=== PATIENT | female | born 2000 | race Two or more races ===

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

== ENCOUNTER 2022-09-10 22:07 | Inpatient (IN) | payer MEDICAID, OTHER ==
[~2022-09-10] VITALS: Ht 167.6 cm; Wt 123.4 kg
[~2022-09-10 22:07] MED LIST changes: -IBUPROFEN 800 MG TAB PO ONE; +NITR-87 PO; +ONDA-144 PO; +PERCOT PO; -cefTRIAXone SOD 1,000 MG VL IM ONE
[2022-09-10] MEDS ORDERED: SODIUM CHLORIDE 0.9% 1,000 ML IV ONE (22:30)
[2022-09-10 22:44] LABS: Basophils # (auto) 0 10 ^3/uL (0-0.2); Basophils % (auto) 0.3 % (0.0-2.0); Eosinophils # (auto) 0 10 ^3/uL (0-0.8); Eosinophils % (auto) 0.3 % (0.0-7.0); Hemoglobin 12.8 g/dL (12.2-16.2); Monocytes # (auto) 0.6 10 ^3/uL (0-1.3); Neutrophils # (auto) 8.7 10 ^3/uL (1.6-8.6)
[2022-09-10 22:46] LABS: Hematocrit 40.9 % (36.0-46.0); Lymphocytes # (auto) 1.4 10 ^3/uL (0.4-5.4); Mean Corpuscular Hemoglobin 23.5 pg (28.0-32.0); Mean Corpuscular Hgb Conc. 31.3 g/dL (32.0-36.0); Mean Corpuscular Volume 75.2 fL (80.0-100.0); Monocytes % (auto) 5.9 % (0.0-12.0); Neutrophils % (auto) 80.5 % (37.0-80.0); Red Blood Cells 5.43 10^6/uL (4.0-5.20); Red Cell Distribution Width 16.6 % (11.8-14.3); White Blood Cell 10.8 10^3/uL (4.4-10.8)
[2022-09-10 23:03] LABS: Albumin 3.5 g/dL (3.4-5.0); BUN/Creatinine Ratio 17.5; Calcium 9.6 mg/dL (8.5-10.1); Potassium 4.4 mmol/L (3.5-5.1)
[2022-09-10 23:06] LABS: Total Protein 8.8 g/dL (6.4-8.2)
[2022-09-11] MEDS ORDERED: PIPERACILLIN-TAZOB 3.375GM 100 ML IV ONE (01:45)
[2022-09-11] MEDS ORDERED: NITROGLYCERIN 0.4 MG SL TAB SL PRN (03:45)
[2022-09-11] MEDS ORDERED: MORPHINE SULFATE INJ 2 MG/ml SYRG IV PRN ×2 (03:45)
[2022-09-11] MEDS ORDERED: ACETAMINOPHEN 325 MG TAB PO PRN (03:45)
[2022-09-11] MEDS ORDERED: D5W/SOD CHL 0.45% 1,000 ML IV SCH (03:45)
[2022-09-11] MEDS: ONDANSETRON HCL 4 MG/2 ML VIAL IV PRN ×2 (04:46→18:39)
[2022-09-11 05:46] LABS: Basophils # (auto) 0 10 ^3/uL (0-0.2); Basophils % (auto) 0.4 % (0.0-2.0); Eosinophils # (auto) 0.1 10 ^3/uL (0-0.8); Mean Corpuscular Volume 74.9 fL (80.0-100.0); Neutrophils # (auto) 5.8 10 ^3/uL (1.6-8.6)
[2022-09-11 05:48] LABS: Hematocrit 37.2 % (36.0-46.0); Hemoglobin 11.6 g/dL (12.2-16.2); Lymphocytes # (auto) 2.5 10 ^3/uL (0.4-5.4); Lymphocytes % (auto) 27.8 % (10.0-50.0); Mean Corpuscular Hemoglobin 23.3 pg (28.0-32.0); Mean Corpuscular Hgb Conc. 31.1 g/dL (32.0-36.0); Monocytes # (auto) 0.6 10 ^3/uL (0-1.3); Monocytes % (auto) 6.2 % (0.0-12.0); Neutrophils % (auto) 64.6 % (37.0-80.0); Nucleated Red Blood Cells % 0.1 %; Red Blood Cells 4.97 10^6/uL (4.0-5.20)
[2022-09-11 05:54] LABS: Albumin 3.1 g/dL (3.4-5.0); Calcium 8.7 mg/dL (8.5-10.1); Potassium 3.9 mmol/L (3.5-5.1)
[2022-09-11 05:58] LABS: BUN/Creatinine Ratio 21.7; Total Protein 7.5 g/dL (6.4-8.2)
[2022-09-11 06:03] LABS: INR 1.04 (0.9-1.15)
[2022-09-11 08:17] LABS: Urine Bacteria NONE SEEN /hpf (None Seen); Urine Blood 3+ /uL (Negative); Urine Mucus FEW (None Seen); Urine WBC 104 /hpf (0 - 5)
[2022-09-11] MEDS: cefTRIAXone 1GM/50ML D5W 50 ML IV SCH (08:43)
[2022-09-11] MEDS ORDERED: IBUPROFEN 600 MG TAB PO PRN (09:15)
[2022-09-11] MEDS ORDERED: LIDOCAINE 1%-Mpf/Epinephrine 1:200,000 ONE (09:35)
[2022-09-11] MEDS ORDERED: ROPIVACAINE 0.5% (5MG/ML) 20ML AMPULE IJ ONE (09:35)
[2022-09-11] MEDS ORDERED: METOCLOPRAMIDE HCL 5MG/ml INJ 2ml VIAL IV PRN (10:45)
[2022-09-11] MEDS ORDERED: HYDROmorphone HCL 2 MG/ML VL/or syr IV PRN ×3 (10:45→13:30)
[2022-09-11] MEDS ORDERED: MORPHINE SULFATE 4 MG/ML SYR/VIAL IV PRN (10:45)
[2022-09-11] MEDS ORDERED: fentaNYL CITRATE 100 MCG/2 ML VL ONE ×2 (12:19→13:39)
[2022-09-11] MEDS ORDERED: MIDAZOLAM HCL 2MG/2ML 2ml VIAL (1mg/ml) ONE (12:19)
[2022-09-11] MEDS ORDERED: ROCURONIUM 10MG/ML 10ML VIAL IV ONE (12:20)
[2022-09-11] MEDS ORDERED: ceFAZolin 1GM/50ML 100 ML IV ONE (12:37)
[2022-09-11] MEDS ORDERED: SUCCINYLCHOLINE CHLORIDE 20 MG/ML 10ML VIAL IV ONE (12:47)
[2022-09-11] MEDS ORDERED: ONDANSETRON HCL 4 MG/2 ML VIAL IV PRN (13:30)
[2022-09-11] MEDS ORDERED: ONDANSETRON HCL 4 MG/2 ML VIAL ONE ×2 (13:46→14:18)
[2022-09-11] MEDS ORDERED: GLYCOPYRROLATE 0.2 MG/ML 1ML VIAL ONE (14:06)
[2022-09-11] MEDS ORDERED: NEOSTIGMINE 1 MG/ML INJ (10mg/10ML VIAL) ONE (14:06)
[2022-09-11] MEDS: HYDROmorphone HCL 2 MG/ML VL/or syr IV PRN ×3 (14:29→15:13)
[2022-09-11 16:24] VITALS: BP 127/78
[2022-09-11 17:00] VITALS: BP 127/78
[2022-09-11] MEDS: HYDROcodone-ACET 5/325MG TAB PO PRN (18:10)
[2022-09-11] MEDS: D5W/SOD CHL 0.45%/KCL 20MEQ 1,000 ML IV SCH (18:29)
[2022-09-11 22:00] VITALS: BP 104/63
[2022-09-12] MEDS: D5W/SOD CHL 0.45%/KCL 20MEQ 1,000 ML IV SCH ×3 (00:15→20:15)
[2022-09-12] MEDS: HYDROcodone-ACET 5/325MG TAB PO PRN (00:27)
[2022-09-12] MEDS: ONDANSETRON HCL 4 MG/2 ML VIAL IV PRN ×3 (03:02→22:33)
[2022-09-12 05:00] VITALS: BP 105/68
[2022-09-12 06:20] LABS: Basophils # (auto) 0 10 ^3/uL (0-0.2); Basophils % (auto) 0.3 % (0.0-2.0); Eosinophils # (auto) 0.1 10 ^3/uL (0-0.8); Lymphocytes # (auto) 1.8 10 ^3/uL (0.4-5.4); Mean Corpuscular Volume 74.5 fL (80.0-100.0); Nucleated Red Blood Cells % 0.1 %; White Blood Cell 10.3 10^3/uL (4.4-10.8)
[2022-09-12 06:23] LABS: Eosinophils % (auto) 0.6 % (0.0-7.0); Hematocrit 34.4 % (36.0-46.0); Lymphocytes % (auto) 17.8 % (10.0-50.0); Mean Corpuscular Hemoglobin 23.8 pg (28.0-32.0); Mean Corpuscular Hgb Conc. 31.9 g/dL (32.0-36.0); Monocytes # (auto) 0.8 10 ^3/uL (0-1.3); Monocytes % (auto) 7.5 % (0.0-12.0); Neutrophils # (auto) 7.6 10 ^3/uL (1.6-8.6); Neutrophils % (auto) 73.8 % (37.0-80.0); Red Blood Cells 4.61 10^6/uL (4.0-5.20); Red Cell Distribution Width 16.3 % (11.8-14.3)
[2022-09-12 06:31] LABS: Albumin 2.9 g/dL (3.4-5.0); Calcium 8.4 mg/dL (8.5-10.1); Potassium 3.7 mmol/L (3.5-5.1)
[2022-09-12 06:35] LABS: BUN/Creatinine Ratio 12.1; Bilirubin, Total 1.1 mg/dL (0.2-1.0); Total Protein 7.2 g/dL (6.4-8.2)
[2022-09-12 09:00] VITALS: BP 98/53
[2022-09-12] MEDS: cefTRIAXone 1GM/50ML D5W 50 ML IV SCH (10:48)
[2022-09-12 13:00] VITALS: BP 105/62
[2022-09-12] MEDS: IBUPROFEN 600 MG TAB PO PRN ×2 (15:02→22:30)
[2022-09-12 17:00] VITALS: BP 102/74
[2022-09-12 22:00] VITALS: BP_SYST 110; BP_SYST 93; BP_DIAS 53; BP_DIAS 67
[2022-09-13] VITALS (7 sets, daily range): BP systolic 101–113; BP diastolic 53–73
[2022-09-13] MEDS: ONDANSETRON HCL 4 MG/2 ML VIAL IV PRN ×4 (02:18→23:43)
[2022-09-13] MEDS: D5W/SOD CHL 0.45%/KCL 20MEQ 1,000 ML IV SCH ×2 (05:16→16:15)
[2022-09-13] MEDS: IBUPROFEN 600 MG TAB PO PRN ×2 (08:28→17:25)
[2022-09-13] MEDS: cefTRIAXone 1GM/50ML D5W 50 ML IV SCH (08:28)
[2022-09-13] MEDS ORDERED: ONDANSETRON HCL 4 MG/2 ML VIAL IV ONE (09:45)
[2022-09-13] MEDS: POLYETHYLENE GLYCOL 17 GM PWDR PO SCH ×2 (11:19→21:50)
[2022-09-14] MEDS: D5W/SOD CHL 0.45%/KCL 20MEQ 1,000 ML IV SCH ×3 (02:00→14:30)
[2022-09-14] MEDS: IBUPROFEN 600 MG TAB PO PRN ×2 (04:14→19:06)
[2022-09-14] MEDS: ONDANSETRON HCL 4 MG/2 ML VIAL IV PRN ×2 (04:18→23:14)
[2022-09-14 05:00] VITALS: BP 103/81
[2022-09-14 06:08] LABS: Basophils # (auto) 0 10 ^3/uL (0-0.2); Eosinophils # (auto) 0.1 10 ^3/uL (0-0.8); Neutrophils # (auto) 6.5 10 ^3/uL (1.6-8.6)
[2022-09-14 06:11] LABS: Basophils % (auto) 0.5 % (0.0-2.0); Eosinophils % (auto) 1.3 % (0.0-7.0); Hematocrit 34.3 % (36.0-46.0); Hemoglobin 11.1 g/dL (12.2-16.2); Lymphocytes % (auto) 21.5 % (10.0-50.0); Mean Corpuscular Hemoglobin 24.2 pg (28.0-32.0); Mean Corpuscular Hgb Conc. 32.3 g/dL (32.0-36.0); Mean Corpuscular Volume 74.9 fL (80.0-100.0); Monocytes # (auto) 0.6 10 ^3/uL (0-1.3); Monocytes % (auto) 6.3 % (0.0-12.0); Neutrophils % (auto) 70.4 % (37.0-80.0); Red Blood Cells 4.58 10^6/uL (4.0-5.20); Red Cell Distribution Width 16.1 % (11.8-14.3); White Blood Cell 9.2 10^3/uL (4.4-10.8)
[2022-09-14 06:26] LABS: Calcium 8.5 mg/dL (8.5-10.1); Potassium 3.8 mmol/L (3.5-5.1)
[2022-09-14 06:28] LABS: BUN/Creatinine Ratio 5.9
[2022-09-14 06:31] LABS: Bilirubin, Total 2.9 mg/dL (0.2-1.0); Total Protein 6.9 g/dL (6.4-8.2)
[2022-09-14 08:00] VITALS: BP 99/53
[2022-09-14] MEDS: cefTRIAXone 1GM/50ML D5W 50 ML IV SCH (09:17)
[2022-09-14] MEDS: POLYETHYLENE GLYCOL 17 GM PWDR PO SCH ×2 (10:00→21:33)
[2022-09-14 12:00] VITALS: BP 96/56
[2022-09-14] MEDS ORDERED: traMADol HCL 50 MG TAB PO PRN (14:30)
[2022-09-14 16:00] VITALS: BP 93/50
[2022-09-14 20:00] VITALS: BP 101/65
[2022-09-14 22:00] VITALS: BP 101/65
[2022-09-15 05:00] VITALS: BP 103/68
[2022-09-15 06:25] LABS: Calcium 8.9 mg/dL (8.5-10.1); Potassium 3.8 mmol/L (3.5-5.1)
[2022-09-15 06:28] LABS: BUN/Creatinine Ratio 8.9
[2022-09-15 06:30] LABS: Bilirubin, Total 2.4 mg/dL (0.2-1.0); Total Protein 7.7 g/dL (6.4-8.2)
[2022-09-15 08:00] VITALS: BP_SYST 101; BP_SYST 93; BP_DIAS 55; BP_DIAS 65
[2022-09-15] MEDS: cefTRIAXone 1GM/50ML D5W 50 ML IV SCH (09:20)
[2022-09-15] MEDS: D5W/SOD CHL 0.45%/KCL 20MEQ 1,000 ML IV SCH (09:20)
[2022-09-15] MEDS: POLYETHYLENE GLYCOL 17 GM PWDR PO SCH (10:00)
[2022-09-15] MEDS: ONDANSETRON HCL 4 MG/2 ML VIAL IV PRN (10:43)
[2022-09-15] MEDS ORDERED: PANT40TA2 PO (11:58)
[2022-09-15] MEDS ORDERED: TRAM50TA2 PO (11:58)
[2022-09-15 12:00] VITALS: BP 101/64
[2022-09-15 13:57] VITALS: BP 101/64
== END 2022-09-15 15:30 | disposition home or self-care (01) | DRG 263 ==
LOC: ER 22:07 → OVERFLOW 09-11 03:40 → EAST 09-11 09:40
PROVIDERS: ADMIT Nurse Practitioner Family; ATTEND Internal Medicine
PROC: 0FT44ZZ Resection of Gallbladder, Percutaneous Endoscopic Approach (ICD-10-PCS; principal; 2022-09-11 12:46)
DX: K80.00 Calculus of gallbladder with acute cholecystitis without obstruction (principal); K76.0 Fatty (change of) liver, not elsewhere classified; D50.9 Iron deficiency anemia, unspecified; E28.2 Polycystic ovarian syndrome; E66.01 Morbid (severe) obesity due to excess calories; Z68.41 Body mass index [BMI] 40.0-44.9, adult; Z79.899 Other long term (current) drug therapy; R79.89 Other specified abnormal findings of blood chemistry; Z20.822 Contact with and (suspected) exposure to COVID-19
CPT/HCPCS: 36415; 74181; 76705; 80053; 81001; 82247; 83605; 83690; 84702; 85025; 85610; 85730; 86850; 86900; 86901; 87040; 87426; 96361; 96365; 96366; G0378; J0330; J0690; J0696; J2250; J2405; J2543

== ENCOUNTER 2022-09-19 16:28 | Emergency (ER) | payer MEDICAID ==
[~2022-09-19] VITALS: Ht 167.6 cm; Wt 114.3 kg
[~2022-09-19 16:28] MED LIST changes: +PANT40TA2 PO; +TRAM50TA2 PO
[2022-09-19] MEDS ORDERED: ONDANSETRON ODT 4 MG TAB PO ONE (18:30)
[2022-09-19] MEDS ORDERED: MECLIZINE HCL 25 MG TAB PO ONE (18:30)
[2022-09-19 18:56] LABS: Basophils # (auto) 0 10 ^3/uL (0-0.2); Eosinophils # (auto) 0.1 10 ^3/uL (0-0.8); Hemoglobin 12.1 g/dL (12.2-16.2); Lymphocytes # (auto) 1.6 10 ^3/uL (0.4-5.4)
[2022-09-19 18:58] LABS: Basophils % (auto) 0.4 % (0.0-2.0); Eosinophils % (auto) 1.2 % (0.0-7.0); Mean Corpuscular Hgb Conc. 31.7 g/dL (32.0-36.0); Mean Corpuscular Volume 75.8 fL (80.0-100.0); Monocytes # (auto) 0.8 10 ^3/uL (0-1.3); Monocytes % (auto) 7.6 % (0.0-12.0); Neutrophils # (auto) 7.6 10 ^3/uL (1.6-8.6); Neutrophils % (auto) 74.8 % (37.0-80.0); Red Blood Cells 5.02 10^6/uL (4.0-5.20); White Blood Cell 10.2 10^3/uL (4.4-10.8)
[2022-09-19 18:59] LABS: Urine Bacteria NONE SEEN /hpf (None Seen); Urine Blood Negative /uL (Negative); Urine Specific Gravity 1.007 (1.001-1.035); Urine WBC <1 /hpf (0 - 5)
[2022-09-19 19:22] LABS: Albumin 3.3 g/dL (3.4-5.0); Calcium 9.4 mg/dL (8.5-10.1); Potassium 4.2 mmol/L (3.5-5.1)
[2022-09-19 19:24] LABS: BUN/Creatinine Ratio 13.9
[2022-09-19 19:26] LABS: Total Protein 8.7 g/dL (6.4-8.2)
[2022-09-19] MEDS ORDERED: HYDR-3682 PO (21:39)
[2022-09-19] MEDS ORDERED: ONDA-144 PO (21:39)
[2022-09-19 22:19] VITALS: BP 101/62
== END 2022-09-19 22:36 | disposition home or self-care (01) ==
LOC: ER 16:28
DX: K91.82 Postprocedural hepatic failure (principal); L29.9 Pruritus, unspecified; E78.5 Hyperlipidemia, unspecified; Z90.49 Acquired absence of other specified parts of digestive tract
CPT/HCPCS: 36415; 74176; 80053; 81001; 83690; 85025; 99284; J8597; Q0162